=== PATIENT | female | born 1940 | race Caucasian/White ===

== ENCOUNTER 2017-10-26 22:14 | Inpatient (IN) | payer OTHER ==
[~2017-10-26] VITALS: Ht 165.1 cm; Wt 63.0 kg
--- NOTE | 2017-10-26 22:45 | NUR ---
GPS ADMISSION NOTE, RECEIVED PATIENT FROM [facility]. PATIENT ARRIVED ON THIS UNIT AT 2245 VIA STRETCHER WITH 2 EMT ESCORTS. PATIENT ADMITTED ON A 5150 HOLD FOR DTS. PER HOLD OFFICERS WERE DISPATCHED TO PATIENT'S HOME. WHEN OFFICERS ARRIVED AT THE PATIENT'S HOME PATIENT'S DAUGHTER TOLD THE OFFICERS THAT THE PATIENT STATED, " I DON'T WANT TO BE HEAR ANYMORE ". PATIENT THEN WENT TO THE KITCHEN AND PICKED UP A KNIFE. PATIENT IS UNABLE TO CONTRACT FOR SAFETY AT THIS TIME. THE 5150 WAS REVIEWED AND THE DOCUMENTATION IN THE 5150 HOLD APPEARS TO REFLECT THE PRESENTATION OF THE PATIENT. UPON FACE TO FACE ASSESSMENT PATIENT IS CURRENTLY LYING IN BED AWAKE, HAS NO S/S OR COMPLAINTS OF PAIN. PATIENT IS DISPLAYING NO S/S OF APPARENT DISTRESS. PATIENT BREATHING IS UNLABORED WITH EQUAL RISE AND FALL OF THE CHEST. PATIENT IS ALERT AND ORIENTATED X 3 ON ROOM AIR. PATIENT ASSISTED WITH TURING AND REPOSITIONING Q2HR AND PRN FOR COMFORT AND CIRCULATION. PATIENT HAS NO NEEDS AT THIS TIME. PATIENT IS NOTED TO BEING, DISHEVELED, DEPRESSED, COOPERATIVE, AND NEEDS REDIRECTION. PATIENT DENIES SUICIDE IDEATIONS AND HOMICIDAL IDEATIONS AT THIS TIME. PATIENT IS UNDER THE PSYCHIATRIC CARE OF DR. NGUYEN AND THE MEDICAL CARE OF DR OTTO. PATIENT BELONGINGS WERE INVENTORIED AND CHECKED FOR CONTRABAND. ALL CONTRABAND REMOVED AND STORED IN PATIENT HALLWAY LOCKER. PATIENT ADVANCED DIRECTIVES PREFERENCE, IMMUNIZATIONS QUESTIONER, NECESSARY PAPERWORK, AND SKIN ASSESSMENT COMPLETED. PATIENT ORIENTATED TO ROOM, FLOOR, AND STAFF WITH ALL QUESTIONS ANSWERED. PATIENT EDUCATED ON THE USE OF THE CALL DIAS. PATIENT BED SIDE RAILS ARE UP X 2 FOR SAFETY. PATIENT BED IS LOCKED, LOW AND I WILL CONTINUE TO MONITOR THIS PATIENT Q 15 MIN WITH THE HELP OF STAFF TO MAINTAIN SAFETY.
[2017-10-26 23:33] VITALS: BP 121/79
[2017-10-26] MEDS ORDERED: ASPI-605 PO (23:44)
[2017-10-26] MEDS ORDERED: GABA-532 PO (23:45)
[2017-10-26] MEDS ORDERED: IBUP-1955 PO (23:46)
[2017-10-26] MEDS ORDERED: OMEP20CA10 PO (23:47)
[2017-10-26] MEDS ORDERED: SIMV20TA6 PO (23:49)
--- NOTE | 2017-10-26 23:50 | NUR ---
GPS RN NOTE, PATIENT NEEDS A MED RECON AND NICOTINE PATCH. PAGED [facility] MEDICAL INFORMED DR OTTO OF MY FINDINGS. DR OTTO ORDERED TO GIVE NICOTINE PATCH 21MG DAILY AND TO ENDORSE TO AM SHIFT NURSE THAT PATIENT NEEDS A MED RECON. ALL ORDERS NOTED AND CARRIED OUT WILL ENDORSE TO AM SHIFT SHIFT NURSE THAT PATIENT NEEDS A MED RECON. WILL CONTINUE TO MONITOR THIS PATIENT.
[2017-10-27] MEDS ORDERED: MAG HYDROX/AL HYDROX/SIMETH 30 ML UDC PO PRN
[2017-10-27] MEDS ORDERED: LORAZEPAM 0.5 MG TABLET PO PRN
[2017-10-27] MEDS ORDERED: MAGNESIUM HYDROXIDE 30 ML UDC PO PRN
[2017-10-27] MEDS ORDERED: TEMAZEPAM 7.5 MG CAPSULE PO PRN
[2017-10-27] MEDS ORDERED: ACETAMINOPHEN 325 MG TABLET ONE ×2 (00:39→06:45)
[2017-10-27] MEDS: ACETAMINOPHEN 325 MG TABLET PO PRN ×2 (00:40→06:46)
--- NOTE | 2017-10-27 00:40 | NUR ---
GPS RN NOTE, PATIENT HAS A COMPLAINT OF HAVING A HEADACHE AT 2 OUT 10 ON THE PAIN SCALE AND IS REQUESTING TYLENOL AT THIS TIME. PATIENT VITAL SIGNS ARE STABLE. GAVE TYLENOL 650 MG PO Q6HR PRN ORDERED. WILL REASSESS PAIN AND I WILL CONTINUE TO MONITOR THIS PATIENT WITH THE HELP OF STAFF.
[2017-10-27] MEDS ORDERED: CALC-7 PO (07:31)
[2017-10-27 09:15] VITALS: BP 133/71
[2017-10-27] MEDS: NICOTINE PATCH (21MG) 21 MG PATCH.TD24 TD SCH (10:38)
[2017-10-27] MEDS ORDERED: IBUPROFEN 600 MG TABLET PO PRN (12:00)
[2017-10-27] MEDS: PANTOPRAZOLE 40 MG TABLET.DR PO SCH (12:04)
[2017-10-27 16:00] VITALS: BP 119/67
[2017-10-27] MEDS: SIMVASTATIN 20 MG TABLET PO SCH (17:05)
[2017-10-27] MEDS: GABAPENTIN 100 MG CAPSULE PO SCH (17:05)
[2017-10-27] MEDS: ESCITALOPRAM OXALATE (10 MG) 10 MG TABLET PO SCH (17:06)
[2017-10-27 20:00] VITALS: BP 114/73
[2017-10-28] MEDS: ACETAMINOPHEN 325 MG TABLET PO PRN (05:38)
[2017-10-28 07:32] LABS: BASOPHILS # (AUTO) 0.1 /CMM (0.0-0.2); BASOPHILS % (AUTO) 2.1 % (0.0-2.0); EOSINOPHILS # (AUTO) 0.1 /CMM (0.0-0.7); EOSINOPHILS % (AUTO) 2.4 % (0.0-6.0); HEMATOCRIT 39 % (33-45); HEMOGLOBIN 13.2 g/dL (11.5-14.8); LYMPHOCYTES # (AUTO) 1.4 /CMM (0.8-4.8); LYMPHOCYTES % (AUTO) 35.2 % (20.0-44.0); MEAN CORPUSCULAR HEMOGLOBIN 30 PG (26.0-33.0); MEAN CORPUSCULAR HGB CONC 33 g/dl (31.0-36.0); MEAN CORPUSCULAR VOLUME 91 fL (82-100); MONOCYTES # (AUTO) 0.3 /CMM (0.1-1.30); MONOCYTES % (AUTO) 7.5 % (2.0-12.0); NEUTROPHILS # (AUTO) 2.2 /CMM (1.8-8.9); NEUTROPHILS % (AUTO) 52.8 % (43.0-81.0); PLATELET COUNT (AUTO) 222 /CMM (150-450); RDW COEFFICIENT OF VARIATION 14.1 (11.5-15.0); RED BLOOD CELL COUNT(AUTO) 4.34 MIL/uL (4.0-5.2); WHITE BLOOD COUNT (AUTO) 4.1 K/uL (4.3-11.0)
[2017-10-28 07:45] LABS: CHOLESTEROL 179 mg/dL (<200); HDL CHOLESTEROL 68 mg/dL (40-60); LDL 78 mg/dL (0-99); TRIGLYCERIDES 152 mg/dL (30-150)
[2017-10-28 07:46] LABS: ALANINE AMINOTRANSFERASE 25 U/L (12-78); ALBUMIN 3.3 g/dL (3.4-5.0); ALKALINE PHOSPHATASE 68 U/L (46-116); ASPARTATE AMINOTRANSFERASE 21 U/L (15-37); BILIRUBIN,TOTAL 0.5 mg/dL (0.2-1.0); CARBON DIOXIDE 29 mmol/L (21-32); CHLORIDE 107 mmol/L (98-107); CREATININE 0.7 mg/dL (0.6-1.3); GLUCOSE 100 mg/dL (74-106); POTASSIUM 4.2 mmol/L (3.5-5.1); SODIUM SERUM 142 mmol/L (136-145); TOTAL PROTEIN, SERUM 6.4 g/dL (6.4-8.2); UREA NITROGEN, BLOOD 12 mg/dL (7-18)
[2017-10-28 08:32] VITALS: BP 131/71
[2017-10-28] MEDS ORDERED: ASPIRIN EC 81 MG TABLET.DR PO SCH (09:00)
[2017-10-28] MEDS ORDERED: CALCIUM CARB 250MG /VITAMIN D 1 UDTAB PO SCH (09:00)
[2017-10-28] MEDS: ESCITALOPRAM OXALATE (10 MG) 10 MG TABLET PO SCH (09:13)
[2017-10-28] MEDS: PANTOPRAZOLE 40 MG TABLET.DR PO SCH (09:13)
[2017-10-28] MEDS: GABAPENTIN 100 MG CAPSULE PO SCH ×2 (09:14→16:44)
[2017-10-28] MEDS: NICOTINE PATCH (21MG) 21 MG PATCH.TD24 TD SCH (09:15)
--- NOTE | 2017-10-28 14:52 | NUR ---
Initial Discharge Plan: Pt resides at home, [address] [place] [address] with her partner, Ruben Cuba, of 4yrs. Face sheet information however, is reporting pts address at [address] [place] [address]. Pt reports it being her previous address. Pt is uncertain as to where she would like to return upon discharge. Although she wants to return home, she is willing to accept advice from her daughter, Cayla Lambert for her well being. SW attempted to contact pts daughter and LM (SW left contact information). SW will follow up. SW will help form a safe and proper discharge.
--- NOTE | 2017-10-28 16:00 | NUR ---
RN NOTES INFORMED DR. AC PATIENT HAS BEEN CLEARED BY PSYCH DOCTOR PATRICK. RECEIVED ORDER FOR DISCHARGE FROM DR. AC. ORDER NOTED AND CARRIED OUT. PATIENT AWARE AND APPRECIATIVE.
--- NOTE | 2017-10-28 16:00 | NUR ---
DR. NGUYEN GAVE AN ORDER TO D/C HOLD AND D/C HOME. TO FOLLOW UP WITH PSYCH AND MEDICAL DOCTORS.
--- NOTE | 2017-10-28 16:03 | NUR ---
FEDERAL AID COORDINATOR NOTE PATIENT WAS SEEN BY DR. NGUYEN AND CLEARED PATIENT FOR DISCHARGE, DUE TO PATIENT DENYING ANY SUICIDAL IDEATION, AND PER PATIENT IT WAS ALL DUE TO THE ALCOHOL SHE DRANK THAT NIGHT. INFORMED DR. AC AND RECEIVED AN ORDER FOR DISCHARGE, VERIFIED MED RECONCILIATION FOR HOME MEDS.
[2017-10-28 16:19] VITALS: BP 139/83
--- NOTE | 2017-10-28 16:53 | NUR ---
UR Review: [facility] faxed initial clinicals (face sheet, 5150 hold, medical H&P, medication list and discharge plan) to [facility], fax # ; attention to Sierra. [facility]RAD will follow up.
[2017-10-28] MEDS: SIMVASTATIN 20 MG TABLET PO SCH (17:35)
--- NOTE | 2017-10-28 17:37 | NUR ---
Discharge Note: Patient will be discharged home, ; [address] [place] [address]. via private transportation at 6:30 pm. Pts grandson, Cj Huston, will be picking her up and driving her home. Pt and family have been notified and are in agreement. Pt will see her Technical Operations Manager, Dr. Kourtney Hanna ; [address] [place] [address] and Psychiatrist (pt was unable to recall her name but provided address) [phone], [facility] [address] [place] [address] with one week from her discharge. Pt was provided referrals to [address] [address] and was encouraged to present on Tuesday at 10 am for an intake screening to address her substance use. Patient was also referred to [address] [place] , as well as [facility] ; [address] [place] [id number]. Pt was also provided a referral to [facility] Edmonds , [facility] and or [facility] and was encouraged to attend Mondays group at 10 am. Pt was in agreement with referrals.
--- NOTE | 2017-10-28 18:58 | NUR ---
MASON FOREMAN/SUPERINTENDANT NOTE PATIENT ALERT AND ORIENTED X4, DENIES PAIN OR ANY SUICIDAL AND HOMICIDAL IDEATION. PATIENT RECEIVED DISCHARGE INSTRUCTIONS AND VERBALIZED UNDERSTANDING. SKIN ASSESSMENT COMPLETED SKIN DRY AND INTACT, BELONGINGS RECONCILED AND COMPLETED, ALL DISCHARGE PAPERWORKS SIGNED AND COMPLETED. PATIENT LEFT THE FACILITY ACCOMPANIED BY GRANDSON.
--- NOTE | 2017-10-31 10:26 | NUR ---
[facility] faxed [facility] ([phone]), Sierra wills pts discharge note, per GG request. [facility]ONRAD will follow up.
== END 2017-10-28 18:45 | disposition home or self-care (01) | DRG 885 ==
LOC: GPS 22:14
PROVIDERS: ADMIT Psychiatry & Neurology Psychiatry; ATTEND Psychiatry & Neurology Psychiatry
DX: F33.2 Major depressive disorder, recurrent severe without psychotic features (principal); G62.9 Polyneuropathy, unspecified; R45.851 Suicidal ideations; K21.9 Gastro-esophageal reflux disease without esophagitis; Z83.3 Family history of diabetes mellitus; Z87.891 Personal history of nicotine dependence; Z79.899 Other long term (current) drug therapy; E78.5 Hyperlipidemia, unspecified; Z80.9 Family history of malignant neoplasm, unspecified; Z82.49 Family history of ischemic heart disease and other diseases of the circulatory system; Z79.82 Long term (current) use of aspirin; F10.20 Alcohol dependence, uncomplicated; Y90.9 Presence of alcohol in blood, level not specified
CPT/HCPCS: 36415; 80053-TC; 80061-TC; 85025-TC; 87081-TC